=== PATIENT | female | born 1990 | race Caucasian/White ===

== ENCOUNTER 2016-11-08 19:58 | Outpatient (CLI) | payer BC, SELFPAY ==
[~2016-11-08] VITALS: Ht 154.9 cm; Wt 89.0 kg
[~2016-11-08 19:58] MED LIST: ACET50TA PO; ALBUTEROL INHALER; COLA50CA3 PO; IBUP600T26 PO; MACR100C3 PO; MOM30SS PO; PRENTAB66 PO
[2016-11-08] MEDS ORDERED: TERBUTALINE SULFATE 1 MG/ML VIAL (J3105) SQ ONE (22:15)
[2016-11-08] MEDS ORDERED: PROMETHAZINE INJ 25 MG/ML VIAL (J2550) IV PRN (22:15)
[2016-11-08] MEDS: LR 1,000 ML IV SCH (23:11)
[2016-11-09 02:00] VITALS: BP 101/52
[2016-11-09 05:21] VITALS: BP 105/50
[2016-11-09 05:42] VITALS: BP 118/54
[2016-11-09] MEDS: LR 1,000 ML IV SCH (06:15)
== END 2016-11-09 12:11 | disposition home or self-care (01) ==
LOC: M LDO 19:58 → M OBS 11-09 01:53 → M LDO 11-09 12:11
PROVIDERS: ATTEND Obstetrics & Gynecology
DX: O60.03 Preterm labor without delivery, third trimester (principal); O26.893 Other specified pregnancy related conditions, third trimester; O99.89 Other specified diseases and conditions complicating pregnancy, childbirth and the puerperium; W19.XXXA Unspecified fall, initial encounter; Y92.9 Unspecified place or not applicable; Y93.9 Activity, unspecified; Y99.9 Unspecified external cause status; R19.7 Diarrhea, unspecified; R11.0 Nausea; Z3A.34 34 weeks gestation of pregnancy